=== PATIENT | male | born 1975 | race Caucasian/White ===

== ENCOUNTER 2017-10-19 07:38 | Emergency (ER) | payer OTHER ==
[~2017-10-19 07:38] MED LIST: CIPR-344 PO; HYDR-4309 PO; OLM20 PO; PROM-110 PO
--- NOTE | 2017-10-19 07:41 | ER Report ---
History and Physical Time Seen By MD: 07:41 HPI/ROS CHIEF COMPLAINT: Fever, headaches since Friday. HISTORY OF PRESENT ILLNESS: Patient is a 42-year-old male with a history of hypertension here with complaints of intermittent fevers, diffuse myalgias, sore neck, headaches, photosensitivity symptoms since Friday when he came home from a business trip. Patient reportedly flew back at that time and reports having intermittent symptoms as described above. Patient reports decreased appetite, nausea but denies chest pain, shortness breath, rhinorrhea, sore throat, vomiting, abdominal pain, dysuria, hematuria. REVIEW OF SYSTEMS: Constitutional: + fever, + chills. Eyes: No discharge. ENT: No sore throat. Cardiovascular: No chest pain, no palpitations. Respiratory: No cough, no shortness of breath. Gastrointestinal: No abdominal pain, no vomiting + mild nausea Genitourinary: No hematuria. Musculoskeletal: + Mild neck pain Skin: No rashes. Neurological: + mild headache with photosensitivity. Allergies: Coded Allergies: amoxicillin (Verified Allergy, Mild, 10/19/17) Home Meds Reported Medications Olmesartan 20 MG TAB (Benicar 20 MG TAB) 20 Mg Tab, 20 MG PO DAILY, 0 Refills 06/01/08 Hx Smoking: No Smoking Status: Never Smoker Hx Substance Use Disorder: No Hx Alcohol Use: Yes Constitutional Vital Sign - Last 24 Hours 10/19/17 10/19/17 10/19/17 10/19/17 07:42 07:43 07:53 08:00 Temp 97.5 Pulse 95 90 Resp 16 B/P (MAP) 141/105 141/105 (117) 131/93 (106) Pulse Ox 93 93 O2 Delivery Room Air 10/19/17 10/19/17 10/19/17 10/19/17 08:08 08:23 08:28 08:30 Pulse 82 86 91 Resp 20 14 B/P (MAP) 145/93 (110) Pulse Ox 92 91 90 10/19/17 10/19/17 10/19/17 10/19/17 08:33 08:38 08:43 08:58 Pulse 91 93 72 Resp 18 8 6 13 Pulse Ox 90 91 93 89 10/19/17 10/19/17 10/19/17 10/19/17 09:00 09:13 09:28 09:30 Pulse 80 76 Resp 26 13 B/P (MAP) 130/87 (101) 125/81 (96) Pulse Ox 91 89 10/19/17 10/19/17 10/19/17 10/19/17 09:43 09:48 10:03 10:18 Pulse 73 70 72 64 Resp 14 15 13 12 Pulse Ox 90 90 89 Intake and Output 10/19/17 10/19/17 10/20/17 15:00 23:00 07:00 Intake Total 1000 ml Balance 1000 ml Physical Exam General Appearance: The patient is alert, has no immediate need for airway protection and no signs of toxicity. NAD Eyes: Pupils equal and round no pallor or injection. ENT, Mouth: Mucous membranes are moist. Respiratory: There are no retractions, lungs are clear to auscultation. Cardiovascular: Regular rate and rhythm. Gastrointestinal: Abdomen is soft and non tender, no masses, bowel sounds normal. Neurological: No focal deficits Skin: Warm and dry, no rashes. Musculoskeletal: Neck is supple and mildly tender on ROM Extremities are nontender, nonswollen and have full range of motion. DIFFERENTIAL DIAGNOSIS: After history and physical exam differential diagnosis was considered for adult fever including but not limited to viral syndromes including influenza, urinary tract infection, pneumonia and sepsis, meningitis Medical Decision Making Data Points Result Diagram: 10/19/17 0810 10/19/17 0810 Laboratory Hematology Test 10/19/17 08:07 10/19/17 08:10 Urine Color Yellow Urine Clarity Slightly-cloudy Urine pH 5.0 pH (4.8-9.5) Urine Specific Duncan 1.031 Urine Protein Negative mg/dL (NEGATIVE) Urine Glucose (UA) Negative mg/dL (NEGATIVE) Urine Ketones Negative mg/dL (NEGATIVE) Urine Blood Negative (NEGATIVE) Urine Nitrite Negative (NEGATIVE) Urine Bilirubin Negative (NEGATIVE) Urine Urobilinogen Negative mg/dL (0.2-1.9) Urine Leukocyte Esterase Negative (NEGATIVE) Urine RBC None /HPF (0-2/HPF) Urine WBC 1 /HPF (0-5/HPF) Urine Squamous Epithelial Cells None /LPF (</=FEW) Urine Bacteria Negative /HPF (NONE-FEW) Urine Mucus Few /HPF (NONE-FEW) Red Blood Count 5.57 M/uL (4.00-5.60) Mean Corpuscular Volume 84.9 fL (80.0-96.0) Mean Corpuscular Hemoglobin 29.5 pg (26.0-33.0) Mean Corpuscular Hemoglobin Concent 34.8 g/dL (32.0-36.0) Red Cell Distribution Width 13.2 % (11.5-14.5) Mean Platelet Volume 8.3 fL (7.2-11.1) Neutrophils (%) (Auto) 66.3 % (39.4-72.5) Lymphocytes (%) (Auto) 22.4 % (17.6-49.6) Monocytes (%) (Auto) 10.9 % (4.1-12.4) Eosinophils (%) (Auto) 0.1 % (0.4-6.7) Basophils (%) (Auto) 0.3 % (0.3-1.4) Nucleated RBC Relative Count (auto) 0.1 /100WBC Neutrophils # (Auto) 2.7 K/uL (2.0-7.4) Lymphocytes # (Auto) 0.9 K/uL (1.3-3.6) Monocytes # (Auto) 0.4 K/uL (0.3-1.0) Eosinophils # (Auto) 0.0 K/uL (0.0-0.5) Basophils # (Auto) 0.0 K/uL (0.0-0.1) Nucleated RBC Absolute Count (auto) 0.00 K/uL Sodium Level 138 mmol/L (137-145) Potassium Level 4.4 mmol/L (3.5-5.0) Chloride Level 103 mmol/L (98-107) Carbon Dioxide Level 27 mmol/L (22-30) Blood Urea Nitrogen 12 mg/dl (9-21) Creatinine 1.00 mg/dl (0.66-1.25) Glomerular Filtration Rate Calc > 60.0 Random Glucose 106 mg/dl (75-110) Lactate 0.9 mmol/L (0.7-2.1) Calcium Level 8.7 mg/dl (8.4-10.2) Total Bilirubin 0.4 mg/dl (0.2-1.3) Aspartate Amino Transf (AST/SGOT) 25 U/L (0-35) Alanine Aminotransferase (ALT/SGPT) 41 U/L (0-56) Alkaline Phosphatase 49 U/L (0-126) C-Reactive Protein 0.6 mg/dl (<1.0) Total Protein 7.4 g/dl (6.3-8.2) Albumin 4.2 g/dl (3.5-5.0) Lipase 65 U/L (23-300) Chemistry Test 10/19/17 08:07 10/19/17 08:10 Urine Color Yellow Urine Clarity Slightly-cloudy Urine pH 5.0 pH (4.8-9.5) Urine Specific Duncan 1.031 Urine Protein Negative mg/dL (NEGATIVE) Urine Glucose (UA) Negative mg/dL (NEGATIVE) Urine Ketones Negative mg/dL (NEGATIVE) Urine Blood Negative (NEGATIVE) Urine Nitrite Negative (NEGATIVE) Urine Bilirubin Negative (NEGATIVE) Urine Urobilinogen Negative mg/dL (0.2-1.9) Urine Leukocyte Esterase Negative (NEGATIVE) Urine RBC None /HPF (0-2/HPF) Urine WBC 1 /HPF (0-5/HPF) Urine Squamous Epithelial Cells None /LPF (</=FEW) Urine Bacteria Negative /HPF (NONE-FEW) Urine Mucus Few /HPF (NONE-FEW) White Blood Count 4.1 k/uL (4.5-11.0) Red Blood Count 5.57 M/uL (4.00-5.60) Hemoglobin 16.5 g/dL (14.0-18.0) Hematocrit 47.3 % (42.0-52.0) Mean Corpuscular Volume 84.9 fL (80.0-96.0) Mean Corpuscular Hemoglobin 29.5 pg (26.0-33.0) Mean Corpuscular Hemoglobin Concent 34.8 g/dL (32.0-36.0) Red Cell Distribution Width 13.2 % (11.5-14.5) Platelet Count 137 K/uL (150-450) Mean Platelet Volume 8.3 fL (7.2-11.1) Neutrophils (%) (Auto) 66.3 % (39.4-72.5) Lymphocytes (%) (Auto) 22.4 % (17.6-49.6) Monocytes (%) (Auto) 10.9 % (4.1-12.4) Eosinophils (%) (Auto) 0.1 % (0.4-6.7) Basophils (%) (Auto) 0.3 % (0.3-1.4) Nucleated RBC Relative Count (auto) 0.1 /100WBC Neutrophils # (Auto) 2.7 K/uL (2.0-7.4) Lymphocytes # (Auto) 0.9 K/uL (1.3-3.6) Monocytes # (Auto) 0.4 K/uL (0.3-1.0) Eosinophils # (Auto) 0.0 K/uL (0.0-0.5) Basophils # (Auto) 0.0 K/uL (0.0-0.1) Nucleated RBC Absolute Count (auto) 0.00 K/uL Glomerular Filtration Rate Calc > 60.0 Lactate 0.9 mmol/L (0.7-2.1) Calcium Level 8.7 mg/dl (8.4-10.2) Total Bilirubin 0.4 mg/dl (0.2-1.3) Aspartate Amino Transf (AST/SGOT) 25 U/L (0-35) Alanine Aminotransferase (ALT/SGPT) 41 U/L (0-56) Alkaline Phosphatase 49 U/L (0-126) C-Reactive Protein 0.6 mg/dl (<1.0) Total Protein 7.4 g/dl (6.3-8.2) Albumin 4.2 g/dl (3.5-5.0) Lipase 65 U/L (23-300) Urinalysis Test 10/19/17 08:07 Urine Color Yellow Urine Clarity Slightly-cloudy Urine pH 5.0 pH (4.8-9.5) Urine Specific Duncan 1.031 Urine Protein Negative mg/dL (NEGATIVE) Urine Glucose (UA) Negative mg/dL (NEGATIVE) Urine Ketones Negative mg/dL (NEGATIVE) Urine Blood Negative (NEGATIVE) Urine Nitrite Negative (NEGATIVE) Urine Bilirubin Negative (NEGATIVE) Urine Urobilinogen Negative mg/dL (0.2-1.9) Urine Leukocyte Esterase Negative (NEGATIVE) Urine RBC None /HPF (0-2/HPF) Urine WBC 1 /HPF (0-5/HPF) Urine Squamous Epithelial Cells None /LPF (</=FEW) Urine Bacteria Negative /HPF (NONE-FEW) Urine Mucus Few /HPF (NONE-FEW) Microbiology Microbiology Date/Time Source Procedure Growth Status 10/19/17 09:15 Blood Blood Culture - Preliminary NO GROWTH SO FAR, SET LATE. REINCUBATED Resulted 10/19/17 08:10 Blood Blood Culture - Preliminary NO GROWTH SO FAR, SET LATE. REINCUBATED Resulted EKG/Imaging Imaging CT Head without contrast Indication: Headache Comparison: None available Technique: Axial CT images were obtained through the brain from the skull base to the vertex without administration of IV contrast. Reformatted coronal and sagittal images were also obtained. One of the following dose optimization techniques was utilized in the performance of this exam: automated exposure control; adjustment of the mA and/ or kV according to the patient's size; or use of an iterative reconstruction technique. Specific details can be referenced in the facility's radiology CT exam operational policy. Findings: No evidence of mass, mass effect, or midline shift. No acute intracranial hemorrhage or acute territorial infarction. No extra-axial fluid collection or hydrocephalus. No abnormal density. Morse/ white matter differentiation appears normal. Bony structures show no fractures or lesions. The visualized paranasal sinuses and mastoid air cells are clear. IMPRESSION: 1. Negative unenhanced CT of the head. ED Course/Re-evaluation ED Course Patient is a 42-year-old male here with complaints of headache, intermittent fever, diffuse body aches, myalgias since Friday after traveling. Patient is afebrile at time of evaluation, hemodynamically stable. He admits to decreased appetite. Patient denies chest pain, shortness breath, abdominal pain. Patient was given fluid resuscitation, Toradol, Decadron. Lumbar puncture was attempted however multiple attempts were unsuccessful. Lab findings were unremarkable. There was no leukocytosis, CRP was negative, electrolytes were normal, urinalysis was noninfectious. CT imaging of the head was completed due to patient's complaints of headache and photosensitivity which was negative for intracranial pathology. Patient reported moderate improvement of symptoms. I discussed the findings with the patient and he voiced understanding. Patient was stable at time of discharge and was advised to return promptly if he develops worsening symptoms, worsening neck pain, confusion, persistent fevers, oral intolerance Decision to Disposition Date: Oct 19, 2017 Decision to Disposition Time: 11:08 Depart Departure Latest Vital Signs Vital Signs Date Time Temp Pulse Resp B/P (MAP) Pulse Ox O2 Delivery O2 Flow Rate FiO2 10/19/17 10:18 64 12 89 10/19/17 09:30 125/81 (96) 8/19/18 07:42 97.5 Room Air Impression: Primary Impression: Fever Additional Impressions: Body aches Headache Condition: Improved Disposition: HOME OR SELF-CARE Patient Instructions: Acute Headache (ED), Fever in Adults (ED) Additional Instructions: Please drink plenty of water to maintain hydration status. Please return promptly if you develop persistent fevers, worsening pain, worsening headaches, confusion or disorientation, inability to tolerate oral intake. Please follow- up with your family doctor in the next 3 days. Problem Qualifiers WYATT KNIGHT DO Oct 19, 2017 07:41
[2017-10-19] MEDS ORDERED: NS(*) 0.9% 1000 ML BAG 1,000 ML IV ONE ×2 (07:56→10:30)
[2017-10-19] MEDS ORDERED: KETOROLAC 30 MG/ML VIAL IVP ONE ×2 (08:00→09:20)
[2017-10-19] MEDS ORDERED: LIDOCAINE 1% MDV 200 MG/20 ML INFIL ONE (08:10)
[2017-10-19 08:31] LABS: PLATELET COUNT, AUTOMATED 137 K/uL (150-450)
[2017-10-19] MEDS ORDERED: DEXAMETHASONE SOD PHOS 10MG/ML IVP ONE (09:20)
[2017-10-19] MEDS ORDERED: METOCLOPRAMIDE 10 MG/2 ML SDV IVP ONE (09:20)
--- NOTE | 2017-10-19 10:15 | RADIOLOGY IMAGING REPORT ---
FACILITY: [facility] PATIENT NAME: Anand Wagner : 1975 MR: [id number] V: [id number] EXAM DATE: ORDERING PHYSICIAN: WYATT KNIGHT TECHNOLOGIST: Location: [facility] - [place] Patient: Anand Wagner : 1975 Visit/Account:[id number] Date of Sevice: 10/19/2017 CT Head without contrast Indication: Headache Comparison: None available Technique: Axial CT images were obtained through the brain from the skull base to the vertex without administration of IV contrast. Reformatted coronal and sagittal images were also obtained. One of the following dose optimization techniques was utilized in the performance of this exam: autom ated exposure control; adjustment of the mA and/or kV according to the patient's size; or use of an i terative reconstruction technique. Specific details can be referenced in the facility's radiology CT exam operational policy. Findings: No evidence of mass, mass effect, or midline shift. No acute intracranial hemorrhage or acute territorial infarction. No extra-axial fluid collection or hydrocephalus. No abnormal density. Morse/white matter differentiat ion appears normal. Bony structures show no fractures or lesions. The visualized paranasal sinuses and mastoid air cells are clear. IMPRESSION: 1. Negative unenhanced CT of the head. Report Dictated By: Mor Read at 10/19/2017 10:07 AM Report E-Signed By: Mor Read at 10/19/2017 10:10 AM WSN:[email or web address]
[2017-10-19 11:00] VITALS: BP 134/86
== END 2017-10-19 11:15 | disposition home or self-care (01) ==
LOC: ER 08:00
DX: R51 Headache (principal); R42 Dizziness and giddiness
CPT/HCPCS: 36415; 62270; 70450; 81001; 83605; 83690; 85025; 86140; 87040; 96361; 96374; 96375; 96376; 99285; J1100; J1885; J2765; J7030; 82040; 82247; 82310; 82374; 82435; 82565; 82947; 84075; 84132; 84155; 84295; 84450; 84460; 84520

== ENCOUNTER → 2018-08-10 | Outpatient (REF) | payer OTHER ==
[~2018-08-10] MED LIST changes: -HYDR-4309 PO; +HYDR-653 PO
[2018-08-10 09:07] LABS: PLATELET COUNT, AUTOMATED 176 K/uL (150-450)
== END ==
LOC: ZZSTITCHES 08:51
PROVIDERS: ATTEND Physician Assistant
DX: R19.7 Diarrhea, unspecified (principal); R10.10 Upper abdominal pain, unspecified; R10.31 Right lower quadrant pain; R53.83 Other fatigue
CPT/HCPCS: 36415; 82040; 82247; 82310; 82374; 82435; 82565; 82947; 83690; 84075; 84132; 84155; 84295; 84450; 84460; 84520; 85025

== ENCOUNTER → 2018-08-10 | Outpatient (CLI) | payer OTHER ==
--- NOTE | 2018-08-10 11:00 | RADIOLOGY IMAGING REPORT ---
FACILITY: [facility] - [place] PATIENT NAME: Anand Wagner : 1975 MR: [id number] V: [id number] EXAM DATE: ORDERING PHYSICIAN: ELISA VALENTINO TECHNOLOGIST: Location: [facility] - [place] Patient: Anand Wagner : 1975 Visit/Account:[id number] Date of Sevice: 08/10/2018 EXAMINATION: Abdominal ultrasound complete HISTORY: Abdominal pain. COMPARISON: Abdomen ultrasound August 04, 2015 and MR the abdomen June 20, 2016 FINDINGS: Gallbladder: No stones, wall thickening, pericholecystic fluid or sonographic Quintero sign. Liver: There is a 1.8 cm echogenic mass in the anterolateral right lobe of the liver corresponding to the previously demonstrated hemangioma on the prior MR. There is an additional 1 cm echogenic mass segment of the left lobe of the liver. Also corresponding to previously demonstrated hemangioma Common duct: Normal measuring four mm. Pancreas: Negative. Spleen: Normal in size and echogenicity measuring 11.9 cm in length. Kidneys: Normal in size and echogenicity, the right measures 10.3 cm in length, and the left 10.7 cm . No hydronephrosis. Upper abdominal aorta and IVC: Negative. Ascites: None. IMPRESSION: There are two echogenic masses in the liver which have been previously demonstrated to represent ghazala gn hemangiomas. Otherwise unremarkable abdomen ultrasound Results were called to ELISA VALENTINO at 08/10/2018 10:56 AM. Report Dictated By: Chelle Tamayo MD at 08/10/2018 10:48 AM Report E-Signed By: Chelle Tamayo MD at 08/10/2018 10:56 AM WSN:[id number]
== END ==
LOC: US 08:38
PROVIDERS: ATTEND Physician Assistant
DX: D18.03 Hemangioma of intra-abdominal structures (principal)
CPT/HCPCS: 76700